=== PATIENT | female | born 1985 | race Caucasian/White ===

== ENCOUNTER → 2019-08-27 16:35 | Outpatient (CLI) | payer MEDICAID, SELFPAY ==
[2019-08-27 17:26] LABS: Chol/HDL Ratio 7.2 (1-3.5); Cholesterol 173 mg/dL (140-200); HDL Cholesterol 24 mg/dL (29-89); LDL Cholesterol 79 mg/dL (0-130); T4 (Thyroxine) 9.4 ug/dl (4.7-13.3); Triglycerides 348 mg/dL (30-200); VLDL Cholesterol 70 mg/dL (0-40)
[2019-08-27 18:42] LABS: Thyroid Stimulating Hormone 1.39 uIU/ml (0.358-3.740)
[2019-08-29 08:18] LABS: Hep A Ab, IgM Negative (Negative); Hepatitis B Core Antibody IgM Negative (Negative); Hepatitis B Surface Antigen Negative (Negative)
[2019-08-29 15:30] LABS: Hepatitis C Antibody <0.1 s/co ratio (0.0-0.9); Vitamin D 25 Hydroxy 13.3 ng/mL (30.0-100.0)
== END ==
PROVIDERS: Visit Provider Nurse Practitioner Family
DX: E66.9 Obesity, unspecified (principal); E55.9 Vitamin D deficiency, unspecified; F32.9 Major depressive disorder, single episode, unspecified; Z79.899 Other long term (current) drug therapy
CPT/HCPCS: 80061; 80074; 82652; 84436; 84443